=== PATIENT | male | born 1980 | race Caucasian/White ===

== ENCOUNTER 2022-07-19 16:07 | Emergency (ER) | payer MEDICAID ==
[~2022-07-19] VITALS: Ht 160 cm; Wt 88.5 kg
[2022-07-19 16:36] VITALS: BP 163/103
--- NOTE | 2022-07-19 17:08 | NUR ---
dr dunlap at bedside for evaluation
--- NOTE | 2022-07-19 17:10 | NUR ---
42 y/o male c/o epigastric pain x 2 days. Pain is sharp, constant, 9/10, radiates to RUQ. Pt with nausea w/out vomiting. States pain worse after eating. Took tylenol and Morphine with minimal relief. Abdomen soft, flat, bowel sounds active x4. Denies fever, chills, cp, sob, dysuria. Guarding noted with palpation to RUQ. pmh: denies nka
[2022-07-19] MEDS ORDERED: KETOROLAC 30 MG/ML VIAL IM ONE (17:15)
[2022-07-19] MEDS ORDERED: DICYCLOMINE HCL LIQUID 20 MG, ALUMINUM HYD/MAG/SIMETHICONE 30 ML, LIDOCAINE VISCOUS 2% ... PO ONE ×3 (17:15)
[2022-07-19] MEDS ORDERED: ONDANSETRON 4 MG ODT PO ONE (17:15)
--- NOTE | 2022-07-19 17:20 | NUR ---
lab at bedside
[2022-07-19] MEDS ORDERED: ALUMINUM HYD/MAG/SIMETHICONE 30 ML UDC ONE (17:30)
[2022-07-19] MEDS ORDERED: DICYCLOMINE HCL LIQUID 10 MG/5 ML UDC ONE (17:30)
[2022-07-19 17:36] LABS: BASOPHILS # (AUTO) 0.1 K/uL (0.00-0.22); BASOPHILS % (AUTO) 0.7 % (0.0-2.0); EOSINOPHILS % (AUTO) 0.1 % (0.0-4.0); HEMATOCRIT 46.6 % (36-52); HEMOGLOBIN 16.4 g/dL (12.0-18.0); LYMPHOCYTES # (AUTO) 2.4 K/uL (2.0-11.5); LYMPHOCYTES % (AUTO) 18.9 % (20.5-51.1); MEAN CORPUSCULAR HEMOGLOBIN 33 pg (27-31); MEAN CORPUSCULAR HGB CONC 35 g/dL (33-37); MEAN CORPUSCULAR VOLUME 92.7 fL (80-94); MONOCYTES # (AUTO) 1.1 K/uL (0.8-1.0); MONOCYTES % (AUTO) 9.1 % (1.7-9.3); NEUTROPHILS # (AUTO) 8.9 K/uL (1.8-7.7); NEUTROPHILS % (AUTO) 71.2 % (42.2-75.2); PLATELET COUNT (AUTO) 216 K/uL (140-450); RED BLOOD CELL COUNT(AUTO) 5.03 MIL/uL (4.20-6.10); RED CELL DISTRIBUTION WIDTH 12.6 % (11.6-13.7); WHITE BLOOD COUNT (AUTO) 12.5 K/uL (4.8-10.8)
[2022-07-19 18:05] LABS: ANION GAP 17.1 (8-16); CARBON DIOXIDE 24.3 mmol/L (21-32); CREATININE 0.9 mg/dL (0.6-1.3); POTASSIUM 3.4 mmol/L (3.5-5.1); TOTAL BILIRUBIN 1.3 mg/dL (0.0-1.0)
[2022-07-19] MEDS ORDERED: FAMO-90 PO (18:31)
[2022-07-19] MEDS ORDERED: ACET-10509 PO (18:31)
[2022-07-19] MEDS ORDERED: MAG355OR2 PO (18:31)
[2022-07-19] MEDS ORDERED: IBUP-1842 PO (18:31)
[2022-07-19] MEDS ORDERED: ONDA-188 PO (18:31)
[2022-07-19 19:05] VITALS: BP 163/103
--- NOTE | 2022-07-19 19:05 | NUR ---
Patient discharged with v/s stable. Written and verbal after care instructions about acute pancreatitis given and explained. Patient alert, oriented and verbalized understanding of instructions. Ambulatory with steady gait. All questions addressed prior to discharge. ID band removed. Patient advised to follow up with PMD. Rx of tylenol, motrin, maalox, zofran given. Patient educated on indication of medication including possible reaction and side effects. Opportunity to ask questions provided and answered.
== END 2022-07-19 19:05 | disposition home or self-care (01) ==
LOC: MED 16:07
DX: K85.90 Acute pancreatitis without necrosis or infection, unspecified (principal); K76.0 Fatty (change of) liver, not elsewhere classified; R11.10 Vomiting, unspecified; Z79.899 Other long term (current) drug therapy
CPT/HCPCS: 36415; 76705; 80053; 83690; 85025; 96372; 99284; J1885; Q0092; Q0162